=== PATIENT | female | born 2000 | race Caucasian/White ===

== ENCOUNTER 2024-01-23 19:35 | Outpatient (CLI) | payer OTHER, SELFPAY ==
[2024-01-23 20:35] LABS: Beta HCG Quantitative 27.42 mIU/ML
== END 2024-01-23 19:36 | disposition home or self-care (01) ==
LOC: ANHOBOP 19:53
PROVIDERS: PCP Pediatrics; Visit Provider Obstetrics & Gynecology
DX: Z34.90 Encounter for supervision of normal pregnancy, unspecified, unspecified trimester (principal); Z3A.00 Weeks of gestation of pregnancy not specified
CPT/HCPCS: 36415; 84702

== ENCOUNTER 2024-02-01 02:47 | Outpatient (CLI) | payer OTHER, SELFPAY | END 2024-02-01 02:48 | disposition home or self-care (01) | PROVIDERS: PCP Pediatrics; Visit Provider Obstetrics & Gynecology | DX: Z34.90 Encounter for supervision of normal pregnancy, unspecified, unspecified trimester (principal); Z3A.00 Weeks of gestation of pregnancy not specified | CPT/HCPCS: 36415; 84702 ==

== ENCOUNTER 2024-03-03 20:33 | Outpatient (CLI) | payer OTHER, SELFPAY ==
[2024-03-03 21:28] LABS: Basophils Absolute Auto 0.1 K/mm3 (0.0-0.1); Basophils Percent Auto 0.5 % (0.2-1.2); Eosinophils Absolute Auto 0.4 K/mm3 (0-0.3); Eosinophils Percent Auto 2.8 % (0-4.4); Hematocrit 39.6 % (37.0-47.0); Hemoglobin 13.6 g/dL (12.0-15.0); Immature Granulocyte Absolute 0.03 K/mm3 (0.00-0.031); Immature Granulocyte Percent A 0.2 % (0-0.5); Lymphocytes Absolute Auto 3.53 K/mm3 (0.9-3.2); Lymphocytes Percent Auto 27.3 % (18.3-44.2); Mean Corpuscular HGB Conc 34.3 g/dl (32-36); Mean Corpuscular Hemoglobin 30.2 pg (26-34); Mean Platelet Volume 8.5 fl (7.4-10.4); Monocytes Absolute Auto 0.9 K/mm3 (0.1-0.6); Monocytes Percent Auto 6.6 % (2.6-8.5); Neutrophils Absolute Auto 8.1 K/mm3 (1.3-6.7); Neutrophils Percent Auto 62.6 % (45.5-73.1); Platelet Count Result 410 k/mm3 (150-375); Red Cell Distribution Width 11.9 % (11.5-14.5); White Blood Count 12.9 K/mm3 (4.5-10.0)
[2024-03-03 21:44] LABS: Barbiturate Screen Urine Negative (Negative); Benzodiazepines Screen Urine Negative (Negative)
[2024-03-03 21:55] LABS: Amphetamine Screen Urine Negative (Negative); Cannabinoid Screen Urine Negative (Negative); Cocaine Screen Urine Negative (Negative); Opiate Screen Urine Negative (Negative); Phencyclidine Screen Urine Negative (Negative)
[2024-03-03 22:02] LABS: Methadone Screen Urine Negative (Negative)
[2024-03-03 22:18] LABS: Hepatitis B Surface Antigen Negative (Negative); Rubella IgG Antibody 67.3 IU/ML
[2024-03-03 22:30] LABS: HIV 1/2 Ab P24 Ag Result Negative (Negative)
[2024-03-03 22:47] LABS: Free T4 Free Thyroxine Reflex 1.14 ng/dL (0.78-2.19)
[2024-03-03 23:57] LABS: Total Triiodothyronine (T3) 2.51 NG/ML (0.97-1.69)
[2024-03-04 11:08] LABS: Rapid Plasma Reagin Non-Reactive (NonReactive)
== END 2024-03-03 20:34 | disposition home or self-care (01) ==
LOC: ANHOBOP 20:35
PROVIDERS: PCP Pediatrics; Visit Provider Obstetrics & Gynecology
DX: Z36.89 Encounter for other specified antenatal screening (principal)
CPT/HCPCS: 36415; 80307; 84439; 84443; 84480; 85025; 86592; 86703; 86762; 86850; 86900; 86901; 87086; 87088; 87340; G0432

== ENCOUNTER 2024-07-07 23:07 | Outpatient (CLI) | payer OTHER, SELFPAY ==
[2024-07-07 02:42] LABS: Glucose 1 Hour PP 50gm Dose 178 mg/dL
[2024-07-07 03:01] LABS: Rapid Plasma Reagin Non-Reactive (NonReactive)
[2024-07-07 03:24] LABS: HIV 1/2 Ab P24 Ag Result Negative (Negative)
== END 2024-07-07 23:10 | disposition home or self-care (01) ==
LOC: ANHLAB 07-14 06:47
PROVIDERS: Visit Provider Obstetrics & Gynecology
DX: Z36.89 Encounter for other specified antenatal screening (principal)
CPT/HCPCS: 36415; 82947; 84443; 86592; 86703; G0432

== ENCOUNTER 2024-07-21 08:16 | Outpatient (CLI) | payer OTHER, SELFPAY ==
[2024-07-21 08:45] LABS: Glucose Fasting 108 mg/dL
[2024-07-21 10:20] LABS: Glucose 1 Hour 233 mg/dL
[2024-07-21 11:28] LABS: Glucose 2 Hour 222 mg/dL
[2024-07-21 12:38] LABS: Glucose 3 Hour 130 mg/dL
== END 2024-07-21 08:17 | disposition home or self-care (01) ==
LOC: ANHLAB 08:18
PROVIDERS: Visit Provider Obstetrics & Gynecology
DX: Z34.80 Encounter for supervision of other normal pregnancy, unspecified trimester (principal)
CPT/HCPCS: 36415; 82951; 82952

== ENCOUNTER 2024-09-08 04:05 | Outpatient (RCR) | payer OTHER, SELFPAY ==
[2024-08-18] VITALS (10 sets, daily range): BP systolic 115–117; BP diastolic 68–73; PULSE 85–97; O2SAT 97–98
[2024-08-24 01:17] VITALS: BP 119/72; PULSE 96
== END 2024-09-19 09:42 | disposition home or self-care (01) ==
LOC: ANHOBOP 04:05
PROVIDERS: Visit Provider Obstetrics & Gynecology
DX: O24.419 Gestational diabetes mellitus in pregnancy, unspecified control (principal)
CPT/HCPCS: 59025

== ENCOUNTER 2024-09-12 15:31 | Inpatient (IN) | payer OTHER, SELFPAY ==
[2024-09-12] VITALS (115 sets, daily range): BP systolic 84–158; BP diastolic 39–125; PULSE 67–116; TEMP 36.4–36.6; O2SAT 87–100; BMI 38.7
--- NOTE | 2024-09-12 16:09 | LDADM ---
This patient, Lissett Wu, was admitted to Labor/Delivery/Recovery 107 on 09/12/24 at 15:31. Plans for labor, pain management and were discussed with patient. Patient/family oriented to hospital policies and general routines including ID bracelet, bed and alarms, visiting hours, pain management, procedures, bathroom and other care routines, personal items, smoking policy, room service/diet and guest tray routines, security routines, and visiting hours. Patient/Family are encouraged to report perceived risks to care and to ask questions if they do not understand what they are told or what they should do. See OBIX for further documentation.
[2024-09-12 16:13] LABS: Basophils Percent Auto 0.2 % (0.2-1.2); Eosinophils Absolute Auto 0.1 K/mm3 (0-0.3); Eosinophils Percent Auto 1.2 % (0-4.4); Hematocrit 38.2 % (37.0-47.0); Hemoglobin 13.2 g/dL (12.0-15.0); Immature Granulocyte Absolute 0.05 K/mm3 (0.00-0.031); Immature Granulocyte Percent A 0.4 % (0-0.5); Lymphocytes Absolute Auto 2.25 K/mm3 (0.9-3.2); Lymphocytes Percent Auto 18.6 % (18.3-44.2); Mean Corpuscular HGB Conc 34.6 g/dl (32-36); Mean Corpuscular Hemoglobin 29.8 pg (26-34); Mean Corpuscular Volume 86.2 fl (80-100); Mean Platelet Volume 9.7 fl (7.4-10.4); Monocytes Absolute Auto 0.7 K/mm3 (0.1-0.6); Monocytes Percent Auto 5.9 % (2.6-8.5); Neutrophils Absolute Auto 8.9 K/mm3 (1.3-6.7); Neutrophils Percent Auto 73.7 % (45.5-73.1); Platelet Count Result 323 k/mm3 (150-375); Red Blood Count 4.43 M/mm3 (4.2-5.4); Red Cell Distribution Width 12.8 % (11.5-14.5); White Blood Count 12.1 K/mm3 (4.5-10.0)
[2024-09-12] MEDS: LACTATED RINGERS 1,000 ML 125 ML IV CONT (16:15)
[2024-09-12] MEDS: AMPICILLIN 2 GM/NS 100 ML 2 GM/100 ML BAG IVPB (16:16)
[2024-09-12 16:17] LABS: Glucose Point of Care 76 mg/dl (65-105)
[2024-09-12] MEDS: fentaNYL CITRATE INJ (*CRX) 100 MCG/2 ML VIAL 50 MCG IV PUSH (16:18)
[2024-09-12] MEDS: ONDANSETRON INJ 4 MG/2 ML VIAL IV PUSH (16:18)
[2024-09-12 16:39] LABS: Rapid Plasma Reagin Non-Reactive (NonReactive)
[2024-09-12 17:03] LABS: HIV 1/2 Ab P24 Ag Result Negative (Negative)
--- NOTE | 2024-09-12 17:12 | P.PNAN_ITS ---
Anes - Eval Pre Procedure Procedure: Labor EPidural Date/Time: 09/12/24 17:12 Surgeon: Jesus Preop Diagnosis: Labor Pain Pre Op Diagnosis: Labor Patient Data Age: 24 Gender: F Height: 1.7 m Weight: 112 kg Last Vital Signs Temp 36.4 C L 09/12/24 17:00 Pulse 79 09/12/24 17:01 BP 147/86 H 09/12/24 17:01 Pulse Ox 98 09/12/24 16:34 Allergies Allergy/AdvReac Type Severity Reaction Status Date / Time No Known Allergies Allergy Verified 09/12/24 16:14 Home Medications Medication Instructions Recorded Confirmed Type glyburide 2.5 mg tablet 2.5 mg PO DAILY 09/12/24 09/12/24 History levothyroxine 50 mcg tablet 50 mcg PO DAILY 09/12/24 09/12/24 History vits no.126-ferrous fum 1 tablet PO DAILY 09/12/24 09/12/24 History 28 mg iron-folic acid 800 mcg tablet (Classic ) Laboratory Tests 09/12/24 09/12/24 16:09 16:14 WBC 12.1 H K/mm3 (4.5-10.0) RBC 4.43 M/mm3 (4.2-5.4) Hgb 13.2 g/dL (12.0-15.0) Hct 38.2 % (37.0-47.0) MCV 86.2 fl (80-100) MCH 29.8 pg (26-34) MCHC 34.6 g/dl (32-36) RDW 12.8 % (11.5-14.5) Plt Count 323 k/mm3 (150-375) MPV 9.7 fl (7.4-10.4) Immature Gran % (Auto) 0.4 % (0-0.5) Neut % (Auto) 73.7 H % (45.5-73.1) Lymph % (Auto) 18.6 % (18.3-44.2) [place] % (Auto) 5.9 % (2.6-8.5) Eos % (Auto) 1.2 % (0-4.4) Baso % (Auto) 0.2 % (0.2-1.2) Lymph # (Auto) 2.25 K/mm3 (0.9-3.2) [place] # (Auto) 0.7 H K/mm3 (0.1-0.6) Eos # (Auto) 0.1 K/mm3 (0-0.3) Baso # (Auto) 0.0 K/mm3 (0.0-0.1) Abs Immat Gran (auto) 0.05 H K/mm3 (0.00-0.031) Absolute Neuts (auto) 8.9 H K/mm3 (1.3-6.7) Absolute Nucleated RBC 0.000 K/mm3 (0.0-0.012) Nucleated RBC % 0.0 % (0.0-0.2) POC Capillary Glucose 76 mg/dl (65-105) RPR Non-reactive (NonReactive) HIV 1&2 Ab/P24 Ag 4thGn Negative (Negative) Blood Type B Positive Antibody Screen Negative : gestational age (ANETTE 10/04/24, ) Patient hx anesthesia problems: none Family hx anesthesia problems: none Results Review: All pre-operative results and documents have been reviewed as part of the pre- operative evaluation. [facility] Social History Social History Smoking status: Never smoker Do You Feel Safe in your Home?: Yes Lack of Transportation: No Lack of Food: Never True Current Housing: I Have Housing Concerned About Future Housing: No Difficulty Paying Gas/Electric Bills: No Difficulty Paying for Meds: No Currently Unemployed: No Education: Bachelor's Degree Difficulty w/ Childcare or Family Care: No Spiritual care concerns: No Exam Day of Procedure 09/12/24 17:12 Patient weight: obese Heart: regular rate and rhythm Lungs: normal air movement Airway: Mallampati scale class II Neurological: alert and oriented
[2024-09-12] MEDS: LACTATED RINGERS 1,000 ML 999 ML IV CONT (17:14)
[2024-09-12 18:19] LABS: Glucose Point of Care 76 mg/dl (65-105)
[2024-09-12] MEDS: AMPICILLIN 1 GM/NS 50 ML 1 GM/50 ML BAG IVPB (19:22)
[2024-09-12 20:21] LABS: Glucose Point of Care 65 mg/dl (65-105)
[2024-09-12] MEDS: OXYTOCIN 30 UNITS/NS 500 ML 30 UNITS/500 ML BAG IV CONT (21:50)
[2024-09-12] MEDS: FAMOTIDINE 20 MG/2 ML VIAL IV PUSH (22:43)
--- NOTE | 2024-09-12 23:20 | PM.OBPRVD ---
OB - Vaginal Delivery Note Procedure Delivery date: 09/12/24 Induction method: None Delivery augmentation: Pitocin Delivery monitor: External FHT and External Uterine Route of delivery: Episiotomy description: None Laceration Description: Perineal - 1st Degree Delivery repair: vicryl Specimen: No Quantitative Blood Loss (ml): 61 Anesthesia type: Epidural Disposition: Floor Complications: No immediate complications Narrative: Was admitted after spontaneous rupture membranes but noon today she was positive for group B strep and received 2 doses of ampicillin prophylactically. When she was complete she pushed delivered the head spontaneously in the MICHAEL position. Anterior posterior shoulder delivered spontaneously. Cord clamped times and cut and passed off the table given Apgars of 8 and 8 at 1 and 5minutes respectively. Placenta difficult intact spontaneously. Twenty of Pitocin placed IV to help firm the uterus. A small 1st degree sulcal tear was noted and a [id number] with 0 Vicryl placed there were no complications mom and baby doing fine at time Baby Date of : 09/12/24 Time of : 23:06 Gestational Age by Date: 37 Infant gender: Female presentation: vertex position: Right Occiput Anterior Placenta delivery description: Spontaneous Cord Vessel Description: 3 Vessels score one minute: 8 score five minutes: 8
--- NOTE | 2024-09-12 23:22 | P.HP_ITS ---
H&P: HPI History of Present Illness Date/Time: 09/12/24 23:22 Chief Complaint: rupture of membranes at 36 and 6 7th weeks gestation Narrative: 24-year-old 1 para 036 and 6 7th weeks gestation with ruptured to she is positive for group B strep. The patient had gestational diabetes but was controlled with glyburide 2.5mg. [facility] Social History Social History Smoking status: Never smoker Do You Feel Safe in your Home?: Yes Lack of Transportation: No Lack of Food: Never True Current Housing: I Have Housing Concerned About Future Housing: No Difficulty Paying Gas/Electric Bills: No Difficulty Paying for Meds: No Currently Unemployed: No Education: Bachelor's Degree Difficulty w/ Childcare or Family Care: No Spiritual care concerns: No Meds Home Medications and Allergies Home Medications Medication Instructions Recorded Confirmed Type glyburide 2.5 mg tablet 2.5 mg PO DAILY 09/12/24 09/12/24 History levothyroxine 50 mcg tablet 50 mcg PO DAILY 09/12/24 09/12/24 History vits no.126-ferrous fum 1 tablet PO DAILY 09/12/24 09/12/24 History 28 mg iron-folic acid 800 mcg tablet (Classic ) Allergies Allergy/AdvReac Type Severity Reaction Status Date / Time No Known Allergies Allergy Verified 09/12/24 16:14 Vital Signs Vital Signs - 24 hr 09/12/24 15:53 09/12/24 16:01 09/12/24 16:06 Temperature Pulse Rate Blood Pressure Pulse Oximetry 99 98 98 Oxygen Delivery 09/12/24 16:11 09/12/24 16:16 09/12/24 16:18 Temperature Pulse Rate 95 Blood Pressure 156/108 H Pulse Oximetry 99 100 99 Oxygen Delivery 09/12/24 16:23 09/12/24 16:28 09/12/24 16:31 Temperature Pulse Rate 86 Blood Pressure 134/91 H Pulse Oximetry 98 98 Oxygen Delivery 09/12/24 16:34 09/12/24 16:46 09/12/24 17:01 Temperature Pulse Rate 89 79 Blood Pressure 137/85 147/86 H Pulse Oximetry 98 Oxygen Delivery 09/12/24 17:00 09/12/24 17:12 09/12/24 17:16 Temperature 97.5 F L Pulse Rate 86 Blood Pressure 127/93 H Pulse Oximetry 97 Oxygen Delivery 09/12/24 17:17 09/12/24 17:19 09/12/24 17:21 Temperature Pulse Rate 80 67 81 Blood Pressure 143/88 H 158/125 H 124/81 Pulse Oximetry 99 97 Oxygen Delivery 09/12/24 17:24 09/12/24 17:26 09/12/24 17:29 Temperature Pulse Rate 86 89 91 Blood Pressure 128/82 136/78 124/77 Pulse Oximetry 99 Oxygen Delivery 09/12/24 17:31 09/12/24 17:34 09/12/24 17:36 Temperature Pulse Rate 90 89 87 Blood Pressure 125/75 84/54 L 131/76 Pulse Oximetry 100 99 Oxygen Delivery 09/12/24 17:37 09/12/24 17:39 09/12/24 17:41 Temperature Pulse Rate 84 87 82 Blood Pressure 129/72 137/73 118/100 H Pulse Oximetry 100 Oxygen Delivery 09/12/24 17:44 09/12/24 17:46 09/12/24 17:49 Temperature Pulse Rate 87 82 85 Blood Pressure 127/71 128/68 128/73 Pulse Oximetry 100 Oxygen Delivery 09/12/24 17:51 09/12/24 17:54 09/12/24 17:56 Temperature Pulse Rate 83 81 82 Blood Pressure 125/74 123/66 129/68 Pulse Oximetry 100 100 Oxygen Delivery 09/12/24 17:59 09/12/24 18:01 09/12/24 18:04 Temperature Pulse Rate 79 81 86 Blood Pressure 120/67 131/75 124/68 Pulse Oximetry 100 Oxygen Delivery 09/12/24 18:06 09/12/24 18:09 09/12/24 18:09 Temperature Pulse Rate 77 Blood Pressure 125/72 Pulse Oximetry 100 100 100 Oxygen Delivery 09/12/24 18:10 09/12/24 18:11 09/12/24 18:15 Temperature Pulse Rate 87 Blood Pressure 124/67 Pulse Oximetry 100 100 Oxygen Delivery 09/12/24 18:16 09/12/24 18:20 09/12/24 18:25 Temperature Pulse Rate 85 Blood Pressure 113/65 Pulse Oximetry 100 100 Oxygen Delivery 09/12/24 18:30 09/12/24 18:31 09/12/24 18:35 Temperature Pulse Rate 85 Blood Pressure 125/64 Pulse Oximetry 100 100 Oxygen Delivery 09/12/24 18:40 09/12/24 18:45 09/12/24 18:46 Temperature Pulse Rate 81 Blood Pressure 103/59 L Pulse Oximetry 100 100 Oxygen Delivery 09/12/24 18:50 09/12/24 18:55 09/12/24 18:56 Temperature Pulse Rate Blood Pressure Pulse Oximetry 100 100 97 Oxygen Delivery 09/12/24 19:01 09/12/24 19:06 09/12/24 19:07 Temperature Pulse Rate 81 Blood Pressure 114/52 L Pulse Oximetry 100 100 100 Oxygen Delivery 09/12/24 19:12 09/12/24 19:18 09/12/24 19:23 Temperature Pulse Rate Blood Pressure Pulse Oximetry 100 100 100 Oxygen Delivery 09/12/24 19:28 09/12/24 19:31 09/12/24 19:33 Temperature Pulse Rate 84 Blood Pressure 119/77 Pulse Oximetry 100 100 Oxygen Delivery 09/12/24 19:38 09/12/24 19:43 09/12/24 19:46 Temperature Pulse Rate 86 Blood Pressure 129/73 Pulse Oximetry 100 100 Oxygen Delivery 09/12/24 19:48 09/12/24 19:53 09/12/24 19:58 Temperature Pulse Rate Blood Pressure Pulse Oximetry 100 100 98 Oxygen Delivery 09/12/24 20:02 09/12/24 20:07 09/12/24 20:12 Temperature Pulse Rate Blood Pressure Pulse Oximetry 99 100 100 Oxygen Delivery 09/12/24 20:16 09/12/24 20:19 09/12/24 20:24 Temperature Pulse Rate 82 Blood Pressure 107/59 L Pulse Oximetry 100 100 Oxygen Delivery 09/12/24 20:29 09/12/24 20:31 09/12/24 20:34 Temperature Pulse Rate 86 Blood Pressure 119/66 Pulse Oximetry 100 100 Oxygen Delivery 09/12/24 20:39 09/12/24 20:44 09/12/24 20:46 Temperature Pulse Rate 85 Blood Pressure 97/48 L Pulse Oximetry 100 100 Oxygen Delivery 09/12/24 20:49 09/12/24 20:54 09/12/24 20:59 Temperature Pulse Rate Blood Pressure Pulse Oximetry 100 100 100 Oxygen Delivery 09/12/24 21:01 09/12/24 21:04 09/12/24 21:05 Temperature Pulse Rate 89 Blood Pressure 115/66 Pulse Oximetry 100 100 Oxygen Delivery 09/12/24 21:10 09/12/24 21:12 09/12/24 21:16 Temperature Pulse Rate Blood Pressure Pulse Oximetry 100 100 87 L Oxygen Delivery 09/12/24 21:16 09/12/24 21:23 09/12/24 21:25 Temperature Pulse Rate Blood Pressure Pulse Oximetry 92 100 99 Oxygen Delivery 09/12/24 21:27 09/12/24 21:31 09/12/24 21:36 Temperature Pulse Rate 94 Blood Pressure 130/60 Pulse Oximetry 100 100 99 Oxygen Delivery 09/12/24 21:46 09/12/24 21:47 09/12/24 21:52 Temperature Pulse Rate 86 Blood Pressure 120/90 Pulse Oximetry 100 100 Oxygen Delivery 09/12/24 22:00 09/12/24 22:05 09/12/24 22:17 Temperature Pulse Rate 114 H Blood Pressure 97/39 L Pulse Oximetry 100 100 Oxygen Delivery 09/12/24 22:45 09/12/24 22:50 09/12/24 22:55 Temperature Pulse Rate Blood Pressure Pulse Oximetry 99 100 100 Oxygen Delivery 09/12/24 23:00 09/12/24 23:05 09/12/24 23:10 Temperature Pulse Rate Blood Pressure Pulse Oximetry 100 100 98 Oxygen Delivery 09/12/24 23:15 09/12/24 23:20 09/12/24 14:00 Temperature Pulse Rate Blood Pressure Pulse Oximetry 98 99 Oxygen Delivery Room Air 09/12/24 19:22 Temperature 97.9 F Pulse Rate Blood Pressure Pulse Oximetry Oxygen Delivery Exam Const: General: cooperative, healthy appearing and comfortable Nutritional Appearance: average body habitus Orientation/consciousness: oriented to person, oriented to place and oriented to time Resp: Effort & Inspection: normal respiratory effort Cardio: Rate: regular rate Rhythm: regular rhythm Heart sounds: S1 normal heart sound present and S2 normal heart sound present GI: Inspection: normal to inspection : External Female Exam: normal external appearance Speculum Exam - Vagina: normal appearance of the vagina Speculum Exam - Cervix: normal appearance of the cervix ( Cervix complete) H&P: Results Labs Labs: Short CBC 09/12/24 Range/Units 16:09 WBC 12.1 H (4.5-10.0) K/mm3 Hgb 13.2 (12.0-15.0) g/dL Hct 38.2 (37.0-47.0) % Plt Count 323 (150-375) k/mm3 Assessment and Plan Assessment and plan (1) Term : Code(s): Z34.90 - Encounter for supervision of normal , unspecified, unspecified trimester Status: Acute (2) Gestational diabetes: Code(s): O24.419 - Gestational diabetes mellitus in , unspecified control Status: Acute (3) Positive testing for group B Streptococcus: Code(s): B95.1 - Streptococcus, group B, as the cause of diseases classified elsewhere Status: Acute Assessment and Plan: group B strep prophylaxis. Spontaneous vaginal delivery expected. Epidural is working well.
--- NOTE | 2024-09-12 23:25 | P.DS_ITS ---
DS: Admitting Diagnosis Discharge Date 09/14/2024 Admitting Diagnosis Term spontaneous rupture of membranes positive group B strep/ gestational diabetes DS: Discharge Diagnosis Discharge Diagnosis (1) Positive testing for group B Streptococcus: Code(s): B95.1 - Streptococcus, group B, as the cause of diseases classified elsewhere Status: Acute (2) Gestational diabetes: Code(s): O24.419 - Gestational diabetes mellitus in , unspecified control Status: Acute (3) Term : Code(s): Z34.90 - Encounter for supervision of normal , unspecified, unspecified trimester Status: Acute DS: Summary Hospital Course Reason for hospitalization: patient was admitted with spontaneous rupture membranes on 09/12/2024 and underwent spontaneous vaginal delivery with 2 doses of ampicillin an epidural anesthesia Hospital Course: patient's hospital course unremarkable. She remained afebrile. She was up, voiding without difficulty, eating regular diet, ambulating, and generally without complaints. Time Spent with Patient Time attestation: Total time spent providing and/or coordinating discharge services: Exam Const: General: cooperative, healthy appearing and comfortable Nutritional Appearance: average body habitus Orientation/consciousness: oriented to person, oriented to place and oriented to time HENMT: Head: normal to inspection Resp: Effort & Inspection: normal respiratory effort Cardio: Rate: regular rate Rhythm: regular rhythm Heart sounds: S1 normal heart sound present and S2 normal heart sound present GI: Inspection: normal to inspection ( Fundus firm below umbilicus) DS: Data Data Completed and Pending Labs on day of discharge: Labs from last 24 hours 09/12/24 09/12/24 09/12/24 20:17 18:15 16:14 WBC RBC Hgb Hct MCV MCH MCHC RDW Plt Count MPV Immature Gran % (Auto) Neut % (Auto) Lymph % (Auto) [place] % (Auto) Eos % (Auto) Baso % (Auto) Lymph # (Auto) [place] # (Auto) Eos # (Auto) Baso # (Auto) Abs Immat Gran (auto) Absolute Neuts (auto) Absolute Nucleated RBC Nucleated RBC % POC Capillary Glucose 65 76 76 RPR HIV 1&2 Ab/P24 Ag 4thGn Blood Type Antibody Screen 09/12/24 16:09 WBC 12.1 H RBC 4.43 Hgb 13.2 Hct 38.2 MCV 86.2 MCH 29.8 MCHC 34.6 RDW 12.8 Plt Count 323 MPV 9.7 Immature Gran % (Auto) 0.4 Neut % (Auto) 73.7 H Lymph % (Auto) 18.6 [place] % (Auto) 5.9 Eos % (Auto) 1.2 Baso % (Auto) 0.2 Lymph # (Auto) 2.25 [place] # (Auto) 0.7 H Eos # (Auto) 0.1 Baso # (Auto) 0.0 Abs Immat Gran (auto) 0.05 H Absolute Neuts (auto) 8.9 H Absolute Nucleated RBC 0.000 Nucleated RBC % 0.0 POC Capillary Glucose RPR Non-reactive HIV 1&2 Ab/P24 Ag 4thGn Negative Blood Type B Positive Antibody Screen Negative Discharge Plan Discharge Attending physician on discharge: Avery Keller Discharging Clinician: Avery Keller Patient Disposition: Home, Self-Care Activity: may shower, may drive after 2 weeks and pelvic rest Diet: heart healthy Wound Care Instructions: follow printed instructions Patient Instructions: Antibiotic Form Stand Alone Forms: General Discharge Information Follow-up/Referrals: Avery Keller MD [Physician] - Discharge Medications: Continued levothyroxine 50 mcg tablet 50 mcg PO DAILY Classic 28 mg iron- 800 mcg Tablet 1 tablet PO DAILY Discontinued glyburide 2.5 mg tablet 2.5 mg PO DAILY Date of admission: 09/12/24 15:31 Primary Care Provider: UNKNOWN,DOCTOR Admitting Provider: Avery Keller Attending physician on admission: Avery Keller Condition: Stable
[2024-09-12] MEDS: OXYTOCIN 30 UNITS/NS 500 ML 30 UNITS/500 ML BAG 125 UNITS IV CONT (23:45)
[2024-09-13] VITALS (7 sets, daily range): BP systolic 108–140; BP diastolic 53–81; PULSE 82–89; RESP 16–18; TEMP 36.3–36.9; O2SAT 99–100
[2024-09-13] MEDS: IBUPROFEN 600 MG TABLET PO ×4 (01:09→20:26)
[2024-09-13] MEDS: ACETAMINOPHEN 325 MG TABLET 650 MG PO ×2 (02:33→12:14)
--- NOTE | 2024-09-13 07:38 | P.PNOB_ITS ---
OB - PN: Subj Subjective Date/time seen: 09/13/24 07:38 Patient comments: no complaints and pain well controlled baby status: doing well and nursing well OB - PN: Obj Data Labs 09/12/24 16:09 Labs: Laboratory Results - last 24 hr 09/12/24 09/12/24 09/12/24 16:09 16:14 18:15 WBC 12.1 H RBC 4.43 Hgb 13.2 Hct 38.2 MCV 86.2 MCH 29.8 MCHC 34.6 RDW 12.8 Plt Count 323 MPV 9.7 Immature Gran % (Auto) 0.4 Neut % (Auto) 73.7 H Lymph % (Auto) 18.6 [place] % (Auto) 5.9 Eos % (Auto) 1.2 Baso % (Auto) 0.2 Lymph # (Auto) 2.25 [place] # (Auto) 0.7 H Eos # (Auto) 0.1 Baso # (Auto) 0.0 Abs Immat Gran (auto) 0.05 H Absolute Neuts (auto) 8.9 H Absolute Nucleated RBC 0.000 Nucleated RBC % 0.0 POC Capillary Glucose 76 76 RPR Non-reactive HIV 1&2 Ab/P24 Ag 4thGn Negative Blood Type B Positive Antibody Screen Negative 09/12/24 20:17 WBC RBC Hgb Hct MCV MCH MCHC RDW Plt Count MPV Immature Gran % (Auto) Neut % (Auto) Lymph % (Auto) [place] % (Auto) Eos % (Auto) Baso % (Auto) Lymph # (Auto) [place] # (Auto) Eos # (Auto) Baso # (Auto) Abs Immat Gran (auto) Absolute Neuts (auto) Absolute Nucleated RBC Nucleated RBC % POC Capillary Glucose 65 RPR HIV 1&2 Ab/P24 Ag 4thGn Blood Type Antibody Screen OB - PN A/P Plan day: 1 Plan: routine care Time Spent With Patient Time: Total time spent is greater than 50% in coordination of care (as documented) at patient's floor/unit and/or counseling patient: Time with patient: less than 15 minutes Exam Const: General: cooperative, healthy appearing and comfortable Nutritional Appearance: average body habitus Orientation/consciousness: oriented to person, oriented to place and oriented to time HENMT: Head: normal to inspection Resp: Effort & Inspection: normal respiratory effort Cardio: Rate: regular rate Rhythm: regular rhythm Heart sounds: S1 normal heart sound present and S2 normal heart sound present GI: Inspection: normal to inspection
[2024-09-13] MEDS: DOCUSATE SODIUM 100 MG CAPSULE PO (08:19)
[2024-09-13] MEDS: MULTIVIT/MIN/PREN/FOL AC/IRON TABLET 1 TAB PO (08:19)
--- NOTE | 2024-09-13 09:40 | PC.NURSE ---
Assisted mother with latching to the [right] breast in [football] position. Infant [was] able to maintain an appropriate latch after several attempts. Baby sleepy and would give good effort to latch and then wouldn't suckle. Mother [denies] nipple pain/discomfort [throughout feeding], after we adjusted baby's bottom lip to be flanged out. Encouraged mother to keep infant awake and nursing at the breast for 15 minutes. Mother taught to listen for swallowing during feedings. Reviewed using the blue feeding sheet to record time and duration of feeding. Mother voiced understanding of the education shared, to call for assistance if the infant does not latch or if there is discomfort with . name/number on communication board. Reported to the Primary RN.?
[2024-09-13 15:32] LABS: Hematocrit 34.7 % (37.0-47.0); Hemoglobin 11.9 g/dL (12.0-15.0)
[2024-09-14] MEDS: ACETAMINOPHEN 325 MG TABLET 650 MG PO (05:00)
--- NOTE | 2024-09-14 06:39 | PM.OBPNVD ---
OB - PN: Subj Subjective Date/time seen: 09/14/24 06:39 Patient comments: no complaints and pain well controlled baby status: doing well and nursing well OB - PN: Obj Data Labs 09/13/24 15:03 Labs: Laboratory Results - last 24 hr 09/13/24 15:03 Hgb 11.9 L Hct 34.7 L OB - PN A/P Plan Plan: routine care, discharge home and follow up 6 weeks Time Spent With Patient Time: Total time spent is greater than 50% in coordination of care (as documented) at patient's floor/unit and/or counseling patient: Time with patient: less than 15 minutes Exam Const: General: cooperative, healthy appearing and comfortable Nutritional Appearance: average body habitus Orientation/consciousness: oriented to person, oriented to place and oriented to time Resp: Effort & Inspection: normal respiratory effort Cardio: Rate: regular rate Rhythm: regular rhythm Heart sounds: S1 normal heart sound present and S2 normal heart sound present GI: Inspection: normal to inspection
[2024-09-14 07:15] VITALS: BP 109/69; PULSE 81; RESP 16; TEMP 36.6; O2SAT 100
[2024-09-14] MEDS: MULTIVIT/MIN/PREN/FOL AC/IRON TABLET 1 TAB PO (08:41)
[2024-09-14] MEDS: IBUPROFEN 600 MG TABLET PO ×2 (08:41→14:59)
--- NOTE | 2024-09-14 14:15 | PC.NURSE ---
Breast pump set up due to patient request. Lissett wants to pump and bottle fed at this time while still putting baby to breast due to jaundice and bili lights. Instructions given on cleaning, care, usage, that there should be no pain, pumping schedule for milk production, collection, and storage of human milk. Patient was assessed for correct placement, flange size (25mm), to pump for comfort and nipple stretching/stimulation for adequate milk production every 3 hours (8 times in 24 hours) 1-2 times at night. Parents instructed on mixing drops of breast milk with formula and feeding with the bottle and placing drops of milk on a clean finger and putting them in baby's mouth.?Mother voiced understanding of the education shared and will use her pump manual for specific instruction on settings. Reported to the Primary RN.
[2024-09-16 09:39] VITALS: BP 136/80; PULSE 88; RESP 18; TEMP 36.7; O2SAT 100
== END 2024-09-14 16:30 | disposition home or self-care (01) | DRG 807 ==
LOC: ANHLDR 23:27 → ANHOB2 09-13 02:41
PROVIDERS: Admitting Provider Obstetrics & Gynecology; Visit Provider Obstetrics & Gynecology
DX: O24.425 Gestational diabetes mellitus in childbirth, controlled by oral hypoglycemic drugs (principal); Z37.0 Single live birth; O70.0 First degree perineal laceration during delivery; O99.824 Streptococcus B carrier state complicating childbirth; Z3A.37 37 weeks gestation of pregnancy
CPT/HCPCS: 36415; 82948; 85014; 85018; 85025; 86592; 86703; 86850; 86900; 86901; A9270; G0432; J0290; J2405; J2590; J2795; J3010; J7120

== ENCOUNTER 2025-05-29 00:23 | Outpatient (CLI) | payer OTHER, SELFPAY ==
--- OUTSIDE RECORDS SUMMARY | 2025-05-29 00:29 | XMS_ITS | Clinical Summary ---
Author Organization [email or web address] Address [address] [place] [address] Care Team Providers Care Instrumentation Instructor Name Role Phone Unavailable Primary Care Provider Unavailabl e Source Comments [email or web address],non-owned Affiliates and Associated Physician Practices is amultiple site organization consisting of ambulatory clinics and hospital sitesin [place], [place], [place] and [place]. This disclosure is being madepursuant to the Care Everywhere program and may not contain all information available regarding this patient. Last updated 18.[email or web address] Allergies No known active allergies Medications * Be aware that medications may not be up to date on this document. Alwaysverify current medications with the patient. No known medications Active Problems Problem Noted Date Diagnosed Date BMI (body mass index), pediatric, 95-99% for age 0806/17/2013 Immunizations Immunization Administration Dates Next Due DTaP VACCINE IM (6wk-6yrs) 09/09/2002,,03/01/1999,01/01,1998 HEP A PEDS 2 DOSE 10/04/2010,04/01/2010 HEP B VACCINE, PED/ADOL 05/31/1999,1998, HIB BOOSTER 12/02/1999, 9,01/01/1999,10/31 Human Papilloma Virus Vaccine 10/04/2010, 010,04/01/2010 INFLUENZA VACCINE 10/04/2010,08/15/2007 INFLUENZA VACCINE, QUADR. (F LUZONE; FLULAVAL; FLUARIX; AFLURIA QUADRIVALENT; 6MO+), 0.5 ML (IIV4) 11/17/2013 POLA VACCINE QUAD LAIV4 PF NASAL 10/16/2014 MENINGOCOCAL MENINGITIS 06/07/2010 MENINGOCOCCAL ACWY (MCV4P) VAC IM 06/07/2015 MMR 09/09/2002,12/02/1999 POLIO IPV 09/09/2002, 9,01/01/1999,10/31 ROTAVIRUS, PENTAVALENT 03/01/1999,01/01/1999, TDAP (7yrs+) 04/01/2010 VARICELLA 10/04/2010,09/02/1999 Social History Tobacco Use Types Packs/Day Years Used Date Smoking Tobacco: Unknown Alcohol Use Standard Drinks/Week Comments Not Asked 0 (1 standard drink = 0.6 oz pur e alcohol) Comments Unknown Sex and Gender Information Value Date Recorded Sex Assigned at Not on file 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 Gender Identity Not on file Sexual Orientation Not on file Last Filed Vital Signs Vital Sign Reading Time Taken Comments Blood Pressure 128/70 06/07/2015 9:17 AM CDT Pulse 72 06/07/2015 9:17 AM CDT Temperature 37.1 C (98.7 F) 08/22/2014 10:16 AM CDT Respiratory Rate - - Oxygen Saturation - - Inhaled Oxygen Concentration - - Weight 89.4 kg (197 lb) 06/07/2015 9:17 AM CDT Height 168.6 cm (5' 6.38) 06/07/2015 9:17 AM CD T Body Mass Index 31.44 06/07/2015 9:17 AM CDT Plan of Treatment Health Maintenance Due Date Last Done Comments HIV SCREENING 2013 HEPATITIS C SCREENING 08/26/2016 PAP SMEAR 2019 DTAP/TDAP/TD VACCINES (7 - Td or Tdap) 04/01/2020 04/01/2010, 09/09/2002, 12/02/1999, Additional history exists COVID-19 VACCINE (1 - season) 2024 DEPRESSION SCREENING 11/16/2024 INFLUENZA VACCINE (#1) 2025 8, 10/16/2014, 11/17/2013, Additional history exists ZOSTER VACCINE (1 of 2) 2048 HEPATITIS B VACCINE Completed 05/31/1999, 1998, 1998 HIB VACCINE Completed 12/02/1999, 02/14, 01/01/1999, Additional history exists HPV VACCINE Completed 10/04/2010, 05/17, 04/01/2010 MENINGOCOCCAL GROUPS A/C/Y/W VACCINE Completed 06/07/2015, 06/07/2010 MENINGOCOCCAL (Group B) VACCINE SHARED DECISION-MAKING Aged Out No longer eligible based on patient's age to complete this topic PNEUMOCOCCAL VACCINE Aged Out No long er eligible based on patient's age to complete this topic Goals Goal Patient Goal Type Associated Problems Recent Progress Patient-Stated? Author Use safety retraint in car Lifestyle On track( 015 9:20 AM CDT) No Lavonne Covarrubias RN Insurance
[2025-05-29 01:32] LABS: Free T4 Free Thyroxine 0.65 ng/dL (0.78-2.19)
[2025-05-29 01:37] LABS: Beta HCG Quantitative < 2.39 mIU/ML
[2025-05-29 01:45] LABS: Thyroid Stimulating Hormone 25.500 uIU/mL (0.465-4.680)
== END 2025-05-29 00:24 | disposition home or self-care (01) ==
PROVIDERS: Visit Provider Obstetrics & Gynecology
DX: Z34.90 Encounter for supervision of normal pregnancy, unspecified, unspecified trimester (principal)
CPT/HCPCS: 36415; 84439; 84443; 84479; 84702

== ENCOUNTER 2025-07-12 05:28 | Outpatient (CLI) | payer OTHER, SELFPAY ==
[2025-07-12 06:34] LABS: Free T4 Free Thyroxine 0.78 ng/dL (0.78-2.19)
[2025-07-12 06:48] LABS: Thyroid Stimulating Hormone Reflex 13.800 uIU/mL (0.465-4.68)
[2025-07-12 06:54] LABS: Free T4 Free Thyroxine Reflex 0.78 ng/dL (0.78-2.19)
[2025-07-12 08:56] LABS: Total Triiodothyronine (T3) 1.46 NG/ML (0.82-1.58)
== END 2025-07-12 05:29 | disposition home or self-care (01) ==
PROVIDERS: PCP Obstetrics & Gynecology; Visit Provider Obstetrics & Gynecology
DX: Z34.90 Encounter for supervision of normal pregnancy, unspecified, unspecified trimester (principal); Z3A.00 Weeks of gestation of pregnancy not specified
CPT/HCPCS: 36415; 80307; 84439; 84443; 84480

== ENCOUNTER 2025-10-02 21:22 | Outpatient (CLI) | payer OTHER, SELFPAY | END 2025-10-02 21:23 | disposition home or self-care (01) | LOC: ANHOBOP 21:23 | PROVIDERS: PCP Obstetrics & Gynecology; Visit Provider Obstetrics & Gynecology | DX: Z32.00 Encounter for pregnancy test, result unknown (principal) | CPT/HCPCS: 36415; 84144; 84702 ==

== ENCOUNTER 2025-10-12 18:21 | Outpatient (CLI) | payer OTHER, SELFPAY | END 2025-10-12 18:22 | disposition home or self-care (01) | LOC: ANHOBOP 18:24 | PROVIDERS: PCP Obstetrics & Gynecology; Visit Provider Obstetrics & Gynecology | DX: Z34.90 Encounter for supervision of normal pregnancy, unspecified, unspecified trimester (principal) | CPT/HCPCS: 36415; 84144; 84702 ==